=== PATIENT | female | born 1955 | race Caucasian/White ===

== ENCOUNTER 2022-05-16 19:59 | Inpatient (IN) | payer OTHER ==
[~2022-05-16] VITALS: Ht 165.1 cm; Wt 67.9 kg
[2022-05-16 22:51] LABS: BASOPHILS ABSOLUTE AUTO 0.16 K/mm3 (0.00-0.23); BASOPHILS PERCENT AUTO 1 % (0-2); EOSINOPHILS ABSOLUTE AUTO 0.09 K/mm3 (0.00-0.68); EOSINOPHILS PERCENT AUTO 1 % (0-6); Hematocrit 38.1 % (33.0-51.0); Hemoglobin 12.7 g/dL (11.5-16.0); IMMATURE GRAN ABSOLUTE AUTO 0.08 K/mm3 (0.00-0.10); IMMATURE GRAN PERCENT AUTO 1 % (0-1); LYMPHOCYTES ABSOLUTE AUTO 3.93 K/mm3 (0.84-5.20); LYMPHOCYTES PERCENT AUTO 29 % (21-46); MONOCYTES ABSOLUTE AUTO 1.26 K/mm3 (0.16-1.47); MONOCYTES PERCENT AUTO 9 % (4-13); Mean Corpuscular HGB 26.3 pg (26.0-34.0); Mean Corpuscular HGB Conc 33.3 g/dL (31.5-36.5); Mean Corpuscular Volume 79 fL (80-100); Mean Platelet Volume 9.4 fL (9.1-12.4); NEUTROPHILS ABSOLUTE AUTO 8.13 K/mm3 (1.96-9.15); NEUTROPHILS PERCENT AUTO 60 % (41-73); Platelet Count 418 K/mm3 (150-400); RDW Standard Deviation 39.8 fL (35.1-46.3); Red Blood Cell Count 4.83 M/mm3 (3.80-5.20); White Blood Cell Count 13.65 K/mm3 (4.00-11.30)
[2022-05-17 00:44] LABS: International Normalized Ratio 1.08; Prothrombin Time Results 11.3 Sec (9.7-11.5)
--- NOTE | 2022-05-17 02:26 | NUR ---
PATIEN TO ROOM FROM ED AT 0127, AMBULATED TO THE BED FROM THE STRETCHER. PATIENT IS ALERT AND ORIENTED X4, NO NEURO DEFICITS, DENIES HEADACHE. 02 SATS >95% ON RA, DENIES SOB. HR SR AT 70s, DENIES CP PRESSURE. DOES STATE SHE HAS BEEN HAVING RIGHT SHOULDER PAIN FO LAST 12 HOURS, EKG WAS DONE IN ED, NO ABNORMALITIES AND PATIENT ON HEPARIN DRIP. CONTINENT AND INDEPENDENT WITH REPOSITIONING. SEIZURE PADS ON BED AND ASSISTANCE WHEN UP. CALL LIGHT IN REACH, SEE ASSESSMENT FOR MORE DETAIL.
--- NOTE | 2022-05-17 06:46 | NUR ---
PATIENT SLEPT THROUGHT THE NIGHT, NO NEURO CHANGES. VVS, NO ACUTE CHANGES. CALL LIGHT IN REACH
--- NOTE | 2022-05-17 08:25 | NUR ---
0700: SBAR from [facility] MAR[facility]. Pt resting in room, VSS. States 1/10 headache. No focal neuro deficits noted. 0745: Pt to CT scan. Returned w/o adverse event. 0800: No focal neuro deficits noted. 0820: Pt states mild nausea. No focal neuro deficits.
[2022-05-17 09:13] LABS: BASOPHILS ABSOLUTE AUTO 0.14 K/mm3 (0.00-0.23); BASOPHILS PERCENT AUTO 1 % (0-2); EOSINOPHILS ABSOLUTE AUTO 0.09 K/mm3 (0.00-0.68); EOSINOPHILS PERCENT AUTO 1 % (0-6); Hematocrit 38.9 % (33.0-51.0); Hemoglobin 12.8 g/dL (11.5-16.0); IMMATURE GRAN ABSOLUTE AUTO 0.04 K/mm3 (0.00-0.10); IMMATURE GRAN PERCENT AUTO 0 % (0-1); LYMPHOCYTES ABSOLUTE AUTO 2.96 K/mm3 (0.84-5.20); LYMPHOCYTES PERCENT AUTO 26 % (21-46); MONOCYTES ABSOLUTE AUTO 1.03 K/mm3 (0.16-1.47); MONOCYTES PERCENT AUTO 9 % (4-13); Mean Corpuscular HGB 26.1 pg (26.0-34.0); Mean Corpuscular HGB Conc 32.9 g/dL (31.5-36.5); Mean Corpuscular Volume 79 fL (80-100); NEUTROPHILS ABSOLUTE AUTO 6.98 K/mm3 (1.96-9.15); NEUTROPHILS PERCENT AUTO 62 % (41-73); Platelet Count 438 K/mm3 (150-400); RDW Coefficient Variation 14.2 % (11.7-14.2); RDW Standard Deviation 40.7 fL (35.1-46.3); White Blood Cell Count 11.24 K/mm3 (4.00-11.30)
[2022-05-17 09:31] LABS: Albumin, Blood 3.3 g/dL (3.4-5.0); Albumin/Globulin Ratio 0.9 (0.8-1.8); Bilirubin, Total 0.9 mg/dL (0.1-1.0); Calcium, Blood 9.1 mg/dL (8.5-10.1); Creatinine, Blood 0.75 mg/dL (0.40-1.00); Globulin, Blood 3.6 g/dL (2.2-4.0); Potassium, Blood 4.2 mmol/L (3.5-5.5); Total Protein, Blood 6.9 g/dL (6.4-8.2)
--- NOTE | 2022-05-17 16:18 | NUR ---
SHIFT SUMMARY NEURO: HATFIELD AT 12/09 THROUGHOUT DAY, UNCHANGED. NO FOCAL DEFICITS. SEIZURE PRECAUTIONS REMAIN. MONITOR FOR HATFIELD CHANGES, SEIZURE, OR FOCAL DEFICITS AND REPORT IMMEDIATELY FOR CONSULTATION WITH RB NEUROLOGIST AND/OR REPEAT OF HEAD CT. HEAD CT COMPLETED THIS AM WITH NO MAJOR CHANGES NOTED, SEE REPORT. CARDIAC: VSS THROUGHOUT SHIFT, HEPARIN INCREASED TO 18U/KG AND BOLUS OF 1700 U PROVIDED THIS AM. LAST APTT IN THERAPEUTIC RANGE, MAINTAINED RATE. RESP: RA. PLEURTIC CHEST PAIN W/ INSPIRATION OR COUGHING, UNCHANGED. GI/: TOLERATED CARDIAC DIET. BM X 1. OOBT TOILET. INTEG/PSYCH: DECLINED FULL BED BATH. LINENS CHANGED. VISITORS AT BEDSIDE IN AFTERNOON.
--- NOTE | 2022-05-17 20:48 | NUR ---
ASSUMED CARE AT 1900 PATIENT ALERT AN ORIENTED X4, NO NEURO DEFICITS. 02 SATS >93% ON RA, SOME PAIN WITH DEEP BREATHING, POSSIBLE PNEUMONITIS, DENIES SOB. HR SR 60s-70s, DENIES CP/PRESSURE. BP STABLE. UP TO TOILET SBA. SEIZURE PADS ON BED. CALL LIGHT IN REACH, SEE SHIFT ASSESSMENT FOR MORE DETAIL.
--- NOTE | 2022-05-18 06:20 | NUR ---
SHIFT SUMMARY PATIENT REMAINS ALERT AND ORIENTED X4, NO NEURO CHANGES/DEFICITS. 02 SATS 94% ON RA. HR SR 60s, BP STABLE. HEPARIN DRIP INF, TITRATED PER PHARMACY. PATIENT SLEPT MOST THE SHIFT, REPOSITIONED SELF IN BED AND UP TO TOILET.
--- NOTE | 2022-05-18 08:44 | NUR ---
JARET FROM [facility] AT 0700. PT RESTING IN ROOM, VSS, HEPARIN IVGTT 19U/KG/HR AT 68KG WEIGHT ON PUMP. CALL LIGHT IN REACH, SEIZURE PRECAUTIONS IN PLACE, CLUTTER FREE ENVIRONMENT AND PT AWARE TO NOT GET UP WITHOUT ASSISTANCE.
[2022-05-18 09:29] LABS: Hematocrit 40.5 % (33.0-51.0); Hemoglobin 13.6 g/dL (11.5-16.0); Mean Platelet Volume 9.6 fL (9.1-12.4); Platelet Count 442 K/mm3 (150-400)
--- NOTE | 2022-05-18 11:12 | NUR ---
PROVIDER NOTIFIED DR. NARVAEZ NOTIFIED BY TELEPHONE AT 1105 OF NEW HEADACHE REPORTED BY PATIENT, 01/09, R-SIDED BEHIND EYE AND BACK OF HEAD, CONSTANT, OCCURRED AFTER ACTIVITIES INCLUDING BEDBATH APPROXIMATELY 10 MIN PROIR TO ASSESSMENT. SEE MAR FOR INTERVENTION OF ACETAMINOPHEN AND REASSESSMENT AFTER 30MIN.
--- NOTE | 2022-05-18 16:52 | NUR ---
SHIFT SUMMARY NEURO: TRANSIENT RETURN OF R-SIDED HEADACHE THAT RESOLVED AFTER TYLENOL. NO FOCAL DEFICITS. UNABLE TO START PRADAXA IN HOSPITAL DUE TO NON-FORMULARY STATUS, PENDING CONSULTATION WITH NEUROLOGY TO DETERMINE OTHER COURSE OF TREATMENT. RESP: PLEURISY CONTINUES. INCENTIVE SPIROMETRY STARTED AT 1400, PT WITH GOOD COMPLIANCE AND PULLS UP TO 750-1000ML EACH TIME. RA DURING SHIFT. SOMEWHAT DIMINISHED BS TO BILATERAL LL'S PER AUSCULTATION. GI//INTEG/PSYCH: NO ISSUES. MULTIPLE VISITORS DURING DAY. BEDBATH PERFORMED, LINENS CHANGED.
--- NOTE | 2022-05-18 19:15 | NUR ---
ASSUMED CARE OF PT, REPORT RECEIVED. PT IS RESTING QUIETLY RECLINING IN BED AND WATCHING TV, DENIES NEEDS AT THIS TIME, HEPARIN GTT REVIEWED, WILL MONITOR. DISCUSSED PLAN OF CARE FOR THIS SHIFT, DISCUSSED WITH PT TO NOTIFY THIS RN IMMEDIATELY FOR ANY AUDIO/VISUAL DISTURBANCES, ANY INCREASING HEADACHE OR ANY NEW ONSET OF NUMBNESS/TINGLING. PT VERBALIZES UNDERSTANDING. WILL MONITOR.
--- NOTE | 2022-05-19 05:08 | NUR ---
PT RESTS QUIETLY THROUGHOUT SHIFT, STATES THAT SHE HAS BEEN HAVING DIFFICULTY SLEEPING, DOES ADMIT TO PLEURITIC PAIN THIS AM AND RATES AT 310, ACCEPTS TYLENOL PO, STATES THAT IT PROVIDED GREAT PAIN RELIEF FOR HER HEADACHE YESTERDAY ON DAY SHIFT BUT THAT IT HADN'T SEEMED TO BE VERY EFFECTIVE AT CONTROLLING HER RIGHT SIDE PAIN, WILL MONITOR FOR RELIEF. CONTINUES IN SINUS RHYTHM THROUGHOUT NOC, RATE 70-80S, PRESSURES CONTINUE TO MAINTAIN. SHE REMAINS ALERT AND ORIENTED THROUGHOUT SHIFT, CONTINUES TO DENY VISUAL/AUDITORY CHANGES, DENIES NUMBNESS/TINGLING, DENIES VERTIGO, HEALTH AND SAFETY CONSULTANT REMAIN STRONG BILAT. SATS LOW TO MID 90S THROUGHOUT NOC, PT DENIES DYSPNEA/SOB THROUGHOUT NOC, IS AT BEDSIDE AND PT IS USING APPROPRIATELY. THIS RN DISCUSSED PRADAXA RECOMMENDATION WITH [facility] SHIFT PHARMACIST, IF PT IS NOT DISCHARGED TO HOME AND REQUIRES PRADAXA PER NEUROLOGY, THEN RECOMMENDATION IS FOR OUTPT RX AND HAVE FAMILY BRING TO HOSPITAL A "HOME MED"
[2022-05-19 05:15] LABS: Hemoglobin 13.8 g/dL (11.5-16.0); Mean Platelet Volume 9.9 fL (9.1-12.4); Platelet Count 435 K/mm3 (150-400)
--- NOTE | 2022-05-19 08:48 | NUR ---
AM NOTE... ASSUMED CARE OF PT AT 0700, THE PT IS A&Ox4. THE PT'S NEURO ASSESSMENT IS UNCHANGED FROM WHAT THE NOC SHIFT RN HAD REPORTED, THE PT ADMITS TO A 1/10 HEADACHE DURING THIS ASSESSMENT. PUPILS ARE CHENG, PRIMARY THERAPIST ARE EQUAL THE PT DENIES ANY NUMBNESS/TINGLING. THE PT IS IN SR IN THE 95'S, BP IS STABLE, NO EDEMA NOTED ON ASSESSMENT. L/S CLEAR T/O ON RA WITH O2 SATS >90%. BT PRESENT AND HYPOACTIVE, ABD IS SOFT AND NONTENDER TO PALPATION. HEPARIN DRIP IS RUNNING PER ORDERS. THE PT IS REQUESTING TO "GO ON A WALK" TODAY. CALL LIGHT IN REACH WILL CONTINUE TO MONITOR.
[2022-05-19] MEDS ORDERED: LEVE500 PO (11:41)
[2022-05-19] MEDS ORDERED: CEPH500 PO (11:41)
[2022-05-19] MEDS ORDERED: AZIT250 PO (11:41)
[2022-05-19] MEDS ORDERED: DABI150C (11:42)
== END 2022-05-19 15:30 | disposition home or self-care (01) | DRG 91 ==
LOC: ER 19:59 → ICUW 23:25 → ERHOLD 23:25 → ICUW 05-17 01:28
PROVIDERS: Emergency Medicine; Family Medicine; ADMIT Internal Medicine
DX: I67.6 Nonpyogenic thrombosis of intracranial venous system (principal); J18.9 Pneumonia, unspecified organism; G93.6 Cerebral edema; I10 Essential (primary) hypertension; E78.5 Hyperlipidemia, unspecified; M19.90 Unspecified osteoarthritis, unspecified site; Z98.890 Other specified postprocedural states
CPT/HCPCS: 36415; 70450; 71045; 80053; 83880; 84484; 85014; 85018; 85025; 85049; 85610; 85730; 93005; 93010; 96365; 96366; 96375; 99285-25; A9270; J0696; J1644; J1953

== ENCOUNTER 2023-02-26 07:57 | Day surgery (SDC) | payer OTHER ==
[~2023-02-26] VITALS: Ht 165.1 cm; Wt 70.6 kg
[~2023-02-26 07:57] MED LIST: AZIT250 PO; CEPH500 PO; DABI150C; ENOX100I; LEVE500 PO; Norco 5-325 Ta1 EACH PO; WARF5 PO
--- NOTE | 2023-02-26 13:48 | NUR ---
REPORT RECEIVED FROM [facility]. VSS. PT ABLE TO REPOSITION SELF IN BED. PT REQUESTING PO FLUIDS AND TOLERATING THEM WELL. PT REPORTS 2/10 ACHING PAIN TO NECK. PT DRESSING C/D/I WITHOUT DRAINAGE, REDNESS, OR SWELLING.
--- NOTE | 2023-02-26 14:31 | NUR ---
Patient up to Ambulate independently. Gait steady. Discharge instructions reviewed with patient. Patient verbalizes understanding. Copy given to patient to take home. Dressing to procedure site clean, dry, intact with no visible drainage, swelling, erythema or bruising noted. Patient States Post-Procedure ride home has been arranged. Discharged via wheelchair to private car for ride home. PT BELONGINGS RETURNED TO PT
== END 2023-02-26 22:35 | disposition home or self-care (01) ==
LOC: ORSCMMR 07:57 → ORD 10:15 → ORSCMMR 10:15
PROVIDERS: Surgery
PROC: 0JH63WZ Insertion of Totally Implantable Vascular Access Device into Chest Subcutaneous Tissue and Fascia, Percutaneous Approach (ICD-10-PCS; principal; 2023-02-26 10:15)
PROC: B543ZZA Ultrasonography of Right Jugular Veins, Guidance (ICD-10-PCS; principal; 2023-02-26 10:15)
PROC: 05HM33Z Insertion of Infusion Device into Right Internal Jugular Vein, Percutaneous Approach (ICD-10-PCS; principal; 2023-02-26 10:15)
DX: C50.912 Malignant neoplasm of unspecified site of left female breast (principal); I10 Essential (primary) hypertension; Z86.718 Personal history of other venous thrombosis and embolism; Z79.01 Long term (current) use of anticoagulants; Z79.899 Other long term (current) drug therapy; E78.5 Hyperlipidemia, unspecified
CPT/HCPCS: 77001; C1788; J0690; J1100; J1642; J2250; J2405; J2704; J3010; J7120

== ENCOUNTER 2023-10-20 07:49 | Day surgery (SDC) | payer OTHER ==
[~2023-10-20] VITALS: Ht 165.1 cm; Wt 78.5 kg
[2023-10-20] VITALS (21 sets, daily range): BP systolic 111–148; BP diastolic 72–95
[~2023-10-20 07:49] MED LIST changes: +ACETAMINOPHEN PO; +CAFFEINE PO; +DOCU100 PO; +FISH OIL PO; +METPRE4 PO; +OLAN2.5 PO; +OMEP20ER PO; +ONDA4; +PSEU120ER PO; +SARNA TOP; +VITAMIN D5000 UNIT PO; +Voltaren100 GM TOP
[2023-10-20] MEDS ORDERED: ENOX80I SC (09:37)
--- NOTE | 2023-10-20 14:10 | NUR ---
10/20/23 1410 Farnaz Saldaña AFTER MASTECTOMY THE PT WAS REDRAPPED AND PREPPED WITH A NEW STERILE FIELD FOR MEDIPORT REMOVAL.
--- NOTE | 2023-10-20 17:02 | NUR ---
PT ADMITTED POST OP FOR EXTENDED RECOVERY- PAIN APPEARS TO BE WELL MANAGED ON ARRIVAL FROM DAY SURGERY. PT ALERT AND PLEASENT. RATES PAIN 2/. CALEB DRAINS IN PLACE AND EMPTY UPON ARRIVAL. PT BROTHER TO THE BEDSIDE AFTER PT TRANSFERED TO THE ROOM. PT IN BED, CALL LIGHT IN REACH NO S&S OF DISTRESS POST OP VITALS INITIATED.
--- NOTE | 2023-10-20 17:43 | NUR ---
SHIFT SUMMARY- PT ALERT AND ORIENTED. BROTHER AT THE BEDSIDE. PT STATES PAIN HAS BEEN 2/10 ON ALL FOLLOW UPS. PT HAS DENIED NEED FOR PAIN MEDS ON ALL CARE ROUNDING. SHE IS CURRENTLY SITTING UP, CALL LIGHT IN REACH NO S&S OF DISTRESS. PLAN IS TO MONITOR OVERNIGHT, START COUMADIN TONIGHT AND LOVENOX TOMORROW MORNING. PT STATES SHE IS ABLE TO SWALLOW MEDS WITH WATER. PT IS EATING DINNER NOW.
--- NOTE | 2023-10-21 04:35 | NUR ---
SHIFT SUMMARY POD 1 L MASTECTOMY W MEDIPORT REMOVAL PT PABLE TO REST T/O NIGHT. PAIN MANAGED PER EMAR. VOIDING AND TOLERATING PO INTAKE. INCISION TO LEFT BREAST COVERED WITH GAUZE AND TOWEL, C/D/I. BINDER ON ALL NIGHT. MEDIPORT REMOVAL SITE IS ON RIGHT UPPER CHEST, CLOSED WITH STERI-STIPS, C/D/I. PT ON RA SATTING ABOVE 92%. VSS. PLAN FOR DISCHARGE TODAY. NO OTHER CONCERNS AT THIS TIME CALL LIGHT WITHIN REACH.
[2023-10-21 04:45] VITALS: BP 111/69
[2023-10-21 07:38] VITALS: BP 124/73
--- NOTE | 2023-10-21 09:00 | NUR ---
LOVENOX PT DECLINES AM LOVENOX. STATES PER HER ANTICOAGULATION CLINIC SHE IS TO START IT TOMORROW MORNING.
[2023-10-21 14:45] LABS: International Normalized Ratio 1.03; Prothrombin Time Results 10.8 Sec (9.7-11.5)
--- NOTE | 2023-10-21 15:03 | NUR ---
DISCHARGE VERY EXCITED FOR DC HOME TO [place]. PAIN WELL MANAGED. UNDERSTANDS DRAIN CARE & FEELS COMFORTABLE. DECLINES WC OUT. AMBULATES w/ BROTHER.
== END 2023-10-21 15:01 | disposition home or self-care (01) ==
LOC: MHTC 07:49 → ORSCMMR 07:49 → NM 07:49 → MHTC 07:50 → ORSCMMR 08:08 → NM 09:00 → SURS 15:30 → NM 10-21 15:01
PROVIDERS: Pharmacist; Surgery
PROC: 07B60ZX Excision of Left Axillary Lymphatic, Open Approach, Diagnostic (ICD-10-PCS; principal; 2023-10-20 10:00)
PROC: 0HBU0ZZ Excision of Left Breast, Open Approach (ICD-10-PCS; principal; 2023-10-20 10:00)
PROC: 0JPT0WZ Removal of Totally Implantable Vascular Access Device from Trunk Subcutaneous Tissue and Fascia, Open Approach (ICD-10-PCS; principal; 2023-10-20 10:00)
DX: C50.812 Malignant neoplasm of overlapping sites of left female breast (principal); C77.3 Secondary and unspecified malignant neoplasm of axilla and upper limb lymph nodes; Z17.1 Estrogen receptor negative status [ER-]; I10 Essential (primary) hypertension; Z86.718 Personal history of other venous thrombosis and embolism; Z79.01 Long term (current) use of anticoagulants; E78.5 Hyperlipidemia, unspecified; Z79.899 Other long term (current) drug therapy
CPT/HCPCS: 36415; 38792; 85610; 88305; 88307; 88331; 88341; 88342; 88360; A9270; A9520; J0690; J1170; J2704; J3010; J7120; Q9968